=== PATIENT | male | born 1955 | race African-American/Black ===

== ENCOUNTER → 2020-03-24 | Outpatient (CLI) | payer BC, OTHER | END | disposition home or self-care (01) | LOC: CARD 09:36 | PROVIDERS: ATTEND Family Medicine | DX: I10 Essential (primary) hypertension (principal); R94.31 Abnormal electrocardiogram [ECG] [EKG] | CPT/HCPCS: 93017; 93350 ==

== ENCOUNTER → 2020-04-18 | Outpatient (CLI) | payer OTHER | END | disposition home or self-care (01) | LOC: STAR 14:58 | PROVIDERS: ATTEND Urology | DX: Z20.828 Contact with and (suspected) exposure to other viral communicable diseases (principal) | CPT/HCPCS: 87635 ==

== ENCOUNTER 2020-04-24 12:38 | Day surgery (SDC) | payer OTHER ==
[~2020-04-24] VITALS: Ht 185.4 cm; Wt 118.0 kg
[2020-04-24] MEDS ORDERED: CHLORHEXIDINE 15 ML UDC MM ONE (13:00)
[2020-04-24] MEDS ORDERED: LACTATED RINGERS 1,000 ML IV SCH (13:00)
[2020-04-24] MEDS ORDERED: LIDOCAINE-MPF 1%, 2ML INFIL ONE (13:00)
[2020-04-24 13:24] VITALS: BP 132/95
[2020-04-24] MEDS ORDERED: SIMV40TA20 PO (13:33)
[2020-04-24] MEDS ORDERED: METF500T17 PO (13:33)
[2020-04-24] MEDS ORDERED: FENTANYL PF 250 MCG/5ML ONE (13:40)
[2020-04-24] MEDS ORDERED: MIDAZOLAM 1 MG/ML, 2ML ONE (13:40)
[2020-04-24] MEDS ORDERED: hydrALAzine 20 MG/ML, 1ML IV PRN (14:30)
[2020-04-24] MEDS ORDERED: FENTANYL PF 100 MCG/2ML IV PRN (14:30)
[2020-04-24] MEDS ORDERED: LABETALOL 5MG/ML, 20ML IV PRN (14:30)
[2020-04-24] MEDS ORDERED: OXYcodone 5 MG/5 ML ORAL.SOL UDC PO PRN (14:30)
[2020-04-24] MEDS ORDERED: HYDROmorphone 1 MG/ML, 1ML INJ IVPush PRN (14:30)
[2020-04-24] MEDS ORDERED: PROMETHAZINE 25 MG/ML, 1ML IVPush PRN (14:30)
[2020-04-24] MEDS ORDERED: MEPERIDINE/PF 25MG/0.5ML IVPush PRN (14:30)
[2020-04-24] MEDS ORDERED: ACETAMINOPHEN 325 MG TABLET PO PRN (14:30)
[2020-04-24] MEDS ORDERED: ONDANSETRON 2MG/ML, 2ML IVPush PRN (14:30)
[2020-04-24] MEDS ORDERED: DEXAMETHASONE 4 MG/ML, 1ML ONE (14:51)
[2020-04-24] MEDS ORDERED: CEFAZOLIN 1,000 MG ONE ×2 (14:52)
[2020-04-24] MEDS ORDERED: ONDANSETRON 2MG/ML, 2ML ONE ×2 (14:56→17:58)
[2020-04-24] MEDS ORDERED: PROPOFOL 10 MG/ML, 20ML ONE (14:56)
[2020-04-24] MEDS ORDERED: KETOROLAC 30 MG/1 ML ONE (14:56)
[2020-04-24] MEDS ORDERED: OMNIPAQUE 350 MG/ML, 50 ML BOTTLE IV ONE (17:42)
== END 2020-04-24 19:45 | disposition home or self-care (01) ==
LOC: OUT 12:38
PROVIDERS: ATTEND Urology
DX: N13.2 Hydronephrosis with renal and ureteral calculous obstruction (principal); N40.0 Benign prostatic hyperplasia without lower urinary tract symptoms; E11.9 Type 2 diabetes mellitus without complications; Z79.84 Long term (current) use of oral hypoglycemic drugs; Z79.899 Other long term (current) drug therapy
CPT/HCPCS: 52356; 74420; 82360; 88300; 93005; C1758; C1769; C2617; J0690; J1100; J1885; J2250; J2405; J2704; J3010; J7120; Q9967